=== PATIENT | male | born 2000 | race African-American/Black ===

== ENCOUNTER 2024-10-24 06:43 | Emergency (ER) | payer SELFPAY ==
[~2024-10-24] VITALS: Ht 165.1 cm; Wt 75.0 kg
[2024-10-24 06:51] VITALS: BP 157/92; PULSE 104; RESP 18; TEMP 36.6; O2SAT 97
== END 2024-10-24 06:53 | disposition left against medical advice (07) ==
LOC: ER 06:43
DX: G93.40 Encephalopathy, unspecified (principal)
CPT/HCPCS: 99283